=== PATIENT | male | born 1975 | race American Indian/Alaskan Native ===

== ENCOUNTER 2019-04-30 05:13 | Emergency (ER) | payer BC ==
--- NOTE | 2019-04-30 07:38 | Emergency Department Report ---
Chief Complaint: Upper Respiratory Infection Stated Complaint: FLU SYMPTOMS Time Seen by Provider: 04/30/19 07:09 - HPI History of Present Illness: Patient is a 43-year-old male presents emergency room with complaints of URI symptoms began 2 days ago. He has associated generalized body aches, chills, diarrhea, 1 episode of vomiting, cough. He has had a sick contact at home with URI symptoms. He denies any vomiting or diarrhea today. He denies any chest pain, shortness of breath, abdominal pain, any other symptoms. He denies any past medical history allergies medications. vitals with mildly elevated BP otherwise normal on exam: non toxic appearing, no acute distress normal appearance of the eyes moist mucus membranes normal oropharynx, no tonsillar hypertrophy, no exudates, uvula is midline no LAD normal TMs and canals bilaterally normal nasal turbinates, no sinus TTP bilaterally regular rate and heart rhythm, no gallops, no murmurs, no rubs breath sounds are clear bilaterally, no w/r/r skin is warm, dry intact no signs of dehydration, pt is not hypotensive, mucus membranes are moist, pt has had no episodes of vomiting or diarrhea today, he is tolerating PO intake Symptoms and examination consistent with viral illness Patient has had sick contact with similar symptoms Discussed symptomatic treatment and supportive care with the patient Patient is presenting with a nonmedical emergency at this time Medical screening examination performed and there is no threat to life or limb at this time Patient will be referred to a primary care physician Discussed with patient strict return precautions - Exam Vital Signs: Vital Signs 04/30/19 05:19 Temperature 98.6 F Pulse Rate 68 Respiratory 18 Rate Blood Pressure 153/97 O2 Sat by Pulse 96 Oximetry MSE screening note: Focused history and physical exam performed. ED Disposition for MSE Clinical Impression: Viral illness Disposition: Z- MED SCREENING EXAM-LEFT Is pt being admited?: No Does the pt Need Aspirin: No Condition: Stable Instructions: Viral Syndrome (ED) Additional Instructions: Please increase your fluids over the next several days. Eat a bland diet. May take Mucinex for cough and congestion. May use TheraFlu at night. May take Tylenol or ibuprofen as needed for body aches. Follow-up with a primary care doctor in next 2-3 days for reexamination. your blood pressure was mildlly elevated during todays visit please see a primary care doctor to have this reevaluated. Return to the emergency room for any new or worsening symptoms. Referrals: CHUCHO ORO MD [Staff Physician] - 2-3 Days [facility] [Outside] - 2-[address] [facility] [Outside] - 2-3 Days Forms: Work/School Release Form(ED) Time of Disposition: 07:36 Print Language: ANGUILLAN
[2019-04-30 08:20] VITALS: BP 140/82
== END 2019-04-30 08:28 | disposition left against medical advice (07) ==
LOC: ED 05:13
DX: B34.9 Viral infection, unspecified (principal)
CPT/HCPCS: 99281